=== PATIENT | male | born 1980 | race African-American/Black ===

== ENCOUNTER 2021-09-05 11:14 | Outpatient (CLI) | payer BC, OTHER, MEDICARE, SELFPAY ==
--- NOTE | 2021-09-05 11:26 | ECG_ITS ---
Measurements Intervals [place] Rate: 94 P: 67 AR: 160 QRS: 85 QRSD: 98 T: 56 QT: 341 QTc: 428 Interpretive Statements SINUS RHYTHM NO PREVIOUS ECG AVAILABLE FOR COMPARISON Electronically Signed On 09-06-2021 13:31:00 CDT by Snow Hernandes M.D.
[2021-09-05 11:58] LABS: Anion Gap 9 mmol/L (8-16); Blood Urea Nitrogen 28 mg/dL (9-20); Calcium 9.7 mg/dL (8.4-10.2); Carbon Dioxide 27 mmol/L (22-30); Chloride 98 mmol/L (98-107); Estimated Glomerular Filt Rate > 60; Glucose 153 mg/dL (65-110); Potassium 3.7 mmol/L (3.4-5.0); Sodium 134 mmol/L (137-145)
== END 2021-09-05 11:15 | disposition home or self-care (01) ==
PROVIDERS: Anesthesiology; PCP Family Medicine; Visit Provider Otolaryngology
DX: Z01.818 Encounter for other preprocedural examination (principal); E11.9 Type 2 diabetes mellitus without complications
CPT/HCPCS: 36415; 80048; 93005

== ENCOUNTER 2021-09-08 00:59 | Day surgery (SDC) | payer OTHER, BC, MEDICARE, SELFPAY ==
[2021-09-01 08:34] VITALS: BMI 18.6
--- NOTE | 2021-09-01 08:44 | PC.NURSE ---
Report to the Outpatient Waiting Room, entrance under the green pavilion located off [facility], at time 10:30 on date 09/08/21. OR Time: 12:30. - You and your visitor will be asked a series of questions to screen for COVID 19 for your protection. - A mask is required within the hospital. One visitor will be allowed to accompany the patient into the hospital. Patients visitor will be instructed to remain with patient at all times or leave the building. We will allow the visitor to come back to the postoperative area when patient is ready. Preoperative COVID Testing Requirements: TO BRING COPY OF COVID CARD No COVID Test needed if: (proof is required; if not received patient will have Rapid Test prior to entry) - Patient has received COVID Vaccine at least 14 days prior to procedure date or - Patient has positive COVID test result within last 90 days of surgery date. COVID Test needed if above criteria is not met Patients may have clear liquids (water, carbonated beverages, clear teas, apple juice) until 3 hours prior to surgery with a maximum of 20 ounces. - No food from midnight until time of surgery Take the following medications with a SIP of water the morning of surgery: ALBUTEROL (IF NEEDED), ANTIBIOTIC, PAIN PILL (IF NEEDED), MYCOPHENOLATE, PREDNISOLONE, TACROLIMUS Medications to discontinue per physician: VITAMINS/SUPPLEMENTS Date to take last dose: 09/04/21 Please no make-up, nail wolof, hairspray, perfume, deodorant, or body powder the day of surgery. No jewelry (including any body piercings) or valuables the day of surgery, leave them at home. Please take a shower or bath the night before, or the morning of, surgery with an antibacterial soap. Wear comfortable, loose fitting clothing. - Jewelry must be removed prior to entering the operating room. Rings and piercings that are not removed may be cut off. - The hospital will not accept responsibility for valuables. - Please leave all valuables, including medications, at home the day of surgery. If you are going home after surgery, a licensed transportation driver must drive you home. - NO public transportation without another adult. - We recommend that an adult stay with you for 24 hours following discharge. - We also recommend that you do not drive, make important decision, drink alcoholic beverages, or take any drugs that were not prescribed by your health care provider for at least 24 hours after your discharge time. Follow any additional instructions given to you from your surgeon. Telephone instructions given to GITA JIMENEZ and asked if any additional questions and then verbalized understanding. Patient advised to call surgeon office or pre surgery nurse liaison [phone] if any additional questions.
--- NOTE | 2021-09-07 08:10 | PM.IMHP ---
H&P: HPI History of Present Illness Date/Time: 09/07/21 08:10 Chief Complaint: recurrent chronic tonsillitis immunodeficiency Pharyngeal lesion right-sided Narrative: patient presents for planned surgical procedure no change in symptoms no change in history. Review of Systems Constitutional: Constitutional: Denies fatigue, Denies fever(s) and Denies lethargy Eyes: Eyes: Denies blurry vision and Denies change in vision ENT: Reports as per HPI Cardiovascular: Cardiovascular: Denies chest pain Respiratory: Respiratory: Denies cough Endocrine: Endocrine: Denies fatigue Hematologic/Lymphatic: Hematologic/Lymphatic: Denies easy bleeding, Denies easy bruising and Denies lymphadenopathy Allergic/Immunologic: Allergic/Immunologic: Denies seasonal rhinorrhea PMFSH Social History Social History (Reviewed 08/31/21 @ 13:43 by Heidy Bowers [facility]) Years smoked: 5 Smoking status: Former smoker Tobacco type: cigarettes Smoking end date: 05/13/11 Alcohol intake: never Substance use: never Substance use type: does not use Spiritual care concerns: No Meds Home Medications and Allergies Home Medications Medication Instructions Recorded Confirmed Type albuterol sulfate 90 mcg/actuation 1 puff INHALATION Q4H PRN 08/21/21 09/01/21 History aerosol inhaler calcium citrate 250 mg PO BID 08/21/21 09/01/21 History cholecalciferol (vitamin D3) 50 50 mcg PO DAILY 08/21/21 09/01/21 History mcg (2,000 unit) capsule cyanocobalamin (vitamin B-12) 1,000 mcg PO DAILY 08/21/21 09/01/21 History 1,000 mcg capsule famotidine 20 mg tablet 20 mg PO DAILY 08/21/21 09/01/21 History fluticasone propionate 50 1 spray INTRANASAL DAILY 08/21/21 09/01/21 History mcg/actuation nasal spray,suspension hydrocodone 5 mg-acetaminophen 325 1 tablet PO Q6H PRN 08/21/21 09/01/21 History mg tablet metformin 500 mg tablet 500 mg PO DAILY 08/21/21 09/01/21 History multivitamin 1 tablet PO DAILY 08/21/21 09/01/21 History mycophenolate sodium 360 mg 720 mg PO BID 08/21/21 09/01/21 History tablet,delayed release prednisolone 5 mg tablet 5 mg PO DAILY 08/21/21 09/01/21 History semaglutide (weight loss) 1 mg/0.5 1 mg SUBCUT WEEKLY 08/21/21 09/01/21 History mL subcutaneous pen injector tacrolimus 1 mg tablet,extended 1 mg PO DAILY 08/21/21 09/01/21 History release 24 hr tadalafil 5 mg tablet 5 mg PO DAILY 08/21/21 09/01/21 History tamsulosin 0.4 mg capsule 0.4 mg PO QHS 08/21/21 09/01/21 History testosterone 20.25 mg/1.25 gram 1 pump TOPICAL DAILY 08/21/21 09/01/21 History (1.62 %) transdermal gel pump clindamycin HCl 300 mg capsule 300 mg PO Q8H #21 cap 08/31/21 09/01/21 Rx meclizine 12.5 mg tablet 12.5 mg PO BID PRN #14 tablet 08/31/21 09/01/21 Rx Allergies Allergy/AdvReac Type Severity Reaction Status Date / Time No Known Allergies Allergy Verified 09/01/21 08:31 Exam Const: General: cooperative, healthy appearing, comfortable, well developed and alert HENMT: Head: normal to inspection, normocephalic and atraumatic Ears: hearing grossly normal bilaterally, external ears normal, TM's normal bilaterally and EAC's normal General nose exam: Normal external nose present, Normal nares present, No nasal polyps present, Normal nasal mucous membranes and turbinates present and Normal septum present Face and sinus: normal facial exam Mouth: Yes Normal oral and palatal mucosa present, Yes lip normal, Yes tongue normal, Yes oropharynx normal and Yes moist mucous membranes Teeth and gingiva: dentition normal and gingiva normal Throat: posterior oropharynx abnormal, tonisls abnormal ( 3+ exudate of infected appearing erythematous) and uvula midline Eyes: General: appearance normal, both eyes and all related structures Periorbital: periorbital findings normal Eyelids: eyelids normal Conjunctivae: conjunctivae normal Sclera: sclerae normal Neck: Neck: normal visual inspection, full ROM and no lymphadenopat
--- NOTE | 2021-09-08 07:14 | WPDHPUPDATE1 ---
History and Physical Update Update Date/Time: 09/08/21 07:14 History and Physical has been reviewed, including an updated exam of the patient. There are NO changes in the patient's condition. Risks, benefits, and alternatives have been discussed and questions answered. Patient agrees to proceed with procedure.
--- NOTE | 2021-09-08 10:47 | WPDANESEPPF ---
Anes - Initial Pre Proc Eval Procedure: Operation Date: 09/08/21 12:30 Proposed Procedures p Tonsillectomy, - Armin Whittington MD s Direct Laryngoscopy with Biopsy - Armin Whittington MD Date/Time: 09/08/21 10:47 Surgeon: Armin Whittington MD Pre Op Diagnosis: hypertrophy tonsils,nasopharyngeal mass Patient Data Age: 41 Gender: M Height: 1.88 m Weight: 65.77 kg Allergies Allergy/AdvReac Type Severity Reaction Status Date / Time No Known Allergies Allergy Verified 09/01/21 08:31 Home Medications Medication Instructions Recorded Confirmed Type albuterol sulfate 90 mcg/actuation 1 puff INHALATION Q4H PRN 08/21/21 09/01/21 History aerosol inhaler calcium citrate 250 mg PO BID 08/21/21 09/01/21 History cholecalciferol (vitamin D3) 50 50 mcg PO DAILY 08/21/21 09/01/21 History mcg (2,000 unit) capsule cyanocobalamin (vitamin B-12) 1,000 mcg PO DAILY 08/21/21 09/01/21 History 1,000 mcg capsule famotidine 20 mg tablet 20 mg PO DAILY 08/21/21 09/01/21 History fluticasone propionate 50 1 spray INTRANASAL DAILY 08/21/21 09/01/21 History mcg/actuation nasal spray,suspension hydrocodone 5 mg-acetaminophen 325 1 tablet PO Q6H PRN 08/21/21 09/01/21 History mg tablet metformin 500 mg tablet 500 mg PO DAILY 08/21/21 09/01/21 History multivitamin 1 tablet PO DAILY 08/21/21 09/01/21 History mycophenolate sodium 360 mg 720 mg PO BID 08/21/21 09/01/21 History tablet,delayed release prednisolone 5 mg tablet 5 mg PO DAILY 08/21/21 09/01/21 History semaglutide (weight loss) 1 mg/0.5 1 mg SUBCUT WEEKLY 08/21/21 09/01/21 History mL subcutaneous pen injector tacrolimus 1 mg tablet,extended 1 mg PO DAILY 08/21/21 09/01/21 History release 24 hr tadalafil 5 mg tablet 5 mg PO DAILY 08/21/21 09/01/21 History tamsulosin 0.4 mg capsule 0.4 mg PO QHS 08/21/21 09/01/21 History testosterone 20.25 mg/1.25 gram 1 pump TOPICAL DAILY 08/21/21 09/01/21 History (1.62 %) transdermal gel pump clindamycin HCl 300 mg capsule 300 mg PO Q8H #21 cap 08/31/21 09/01/21 Rx meclizine 12.5 mg tablet 12.5 mg PO BID PRN #14 tablet 08/31/21 09/01/21 Rx Patient hx anesthesia problems: none Family hx anesthesia problems: none Results Review: All pre-operative results and documents have been reviewed as part of the pre-operative evaluation. [facility] Past Medical History Medical History (Updated 09/08/21 @ 10:47 by Melchor Rico DO) Diabetes Surgical History Surgical History (Updated 09/08/21 @ 10:47 by Melchor Rico DO) History of kidney transplant History of sleeve gastrectomy Social History Social History Years smoked: 5 Smoking status: Former smoker Tobacco type: cigarettes Smoking end date: 05/13/11 Alcohol intake: never Substance use: never Substance use type: does not use Living arrangements: with family Spiritual care concerns: No Anes - Eval Final PreProcedure Day of Procedure 09/08/21 10:47 Patient weight: thin Heart: regular rate and rhythm Lungs: clear to auscultation and normal air movement Airway: Mallampati scale class II Neurological: alert and oriented Last oral intake: >/= 8 hours ASA classification: III Emergent: no Anesthetic plan: proceed Anesthesia type and monitoring: general ETT and standard monitoring Results Review: All pre-operative results and documents have been reviewed as part of the pre-operative evaluation. Informed Consent: The patient's anesthetic plan and its attendant risks and benefits were discussed with the patient/family/POA. Questions were solicited and answers provided to the satisfaction of the patient/family/POA.
[2021-09-08] MEDS: LACTATED RINGERS 1,000 ML 30 ML IV CONT ×2 (11:00→13:57)
[2021-09-08] MEDS: ACETAMINOPHEN 500 MG TABLET 1000 MG PO (11:00)
[2021-09-08 11:30] VITALS: BP 92/68; PULSE 89; RESP 18; TEMP 37.3; O2SAT 100
[2021-09-08 12:12] LABS: Glucose Point of Care 120 mg/dl (65-105)
[2021-09-08] MEDS: ceFAZolin 2 GM/D5W 50 ML 2 GM/50 ML BAG IVPB (13:00)
[2021-09-08 13:57] VITALS: BP 121/92; PULSE 79; RESP 16; TEMP 36.7; O2SAT 100
--- NOTE | 2021-09-08 14:02 | W.PM.PROC2 ---
Procedure Note - Detailed Date of Procedure 09/08/21 Pre-op Diagnosis Recurrent on chronic tonsillitis, pharyngeal lesion Post-op Diagnosis Same Procedure Performed Direct laryngoscopy, tonsillectomy Surgeon Armin Whittington MD Anesthesia General Indications recurrent tonsillitis and pharyngeal lesion noted on previous flexible laryngoscopy Findings purulence endophytic tonsils pockets of purulence within them as well exudate if, no pharyngeal lesion noted Description of Procedure patient identified consent verified. Patient brought operating room. Time-out performed. General anesthesia induced endotracheal tube secured. Patient prepped and draped 2nd time-out performed. Maxillary tooth mouth guard placed. Dedo laryngoscope utilized complete evaluation of the upper air digestive tract performed. No pharyngeal lesion noted. Laryngoscope as well as maxillary tooth mouth guard removed. Mouthgag placed in opened to reveal tonsils described above. They were dissected in extracapsular plane bilaterally. Any bleeding vessels were cauterized with Bovie suction electrocautery at a setting of 12. There dissected at a setting of 10 with Bovie. The mouth gag was then lowered for 30 seconds reopened to reveal no further bleeding. Care the patient was turned over to Anesthesiology, mouth gag removed. Total blood loss about 2 cc. I performed all dictated portions of the procedure. Estimated Blood Loss 2 Pathology Yes Complications No immediate complications Condition Stable Disposition PACU
[2021-09-08 14:10] VITALS: BP 108/78; PULSE 79; RESP 13; O2SAT 100
[2021-09-08 14:19] LABS: Glucose Point of Care 102 mg/dl (65-105)
[2021-09-08 14:25] VITALS: BP 114/82; PULSE 74; RESP 11; O2SAT 100
[2021-09-08 14:39] VITALS: BP 119/79; PULSE 73; RESP 16
[2021-09-08 15:15] VITALS: BP 117/85; PULSE 78; RESP 16
== END 2021-09-08 15:19 | disposition home or self-care (01) ==
PROVIDERS: PCP Family Medicine; Visit Provider Otolaryngology
PROC: (CPT 42826; principal; 2021-09-08 12:30)
PROC: 0CJS8ZZ Inspection of Larynx, Via Natural or Artificial Opening Endoscopic (ICD-10-PCS; CPT 42826; 2021-09-08 12:30)
DX: J35.01 Chronic tonsillitis (principal); Z79.84 Long term (current) use of oral hypoglycemic drugs; Z79.51 Long term (current) use of inhaled steroids; R59.9 Enlarged lymph nodes, unspecified; E11.9 Type 2 diabetes mellitus without complications; Z87.891 Personal history of nicotine dependence
CPT/HCPCS: 42826; 36415; 80048; 82948; 88302; 93005; A9270; J0330; J0690; J1100; J2250; J2405; J2704; J3010; J7120